=== PATIENT | female | born 1985 | race American Indian/Alaskan Native ===

== ENCOUNTER 2016-10-13 08:33 | Outpatient (CLI) | payer MEDICAID ==
--- NOTE | 2016-10-13 09:33 | Ultrasound Report ---
BILATERAL BREAST ULTRASOUND: 10/13/16 08:33:00 CLINICAL: with bilateral breast pain. COMPARISON: None. FINDINGS: Ultrasound of the right breast(including all four quadrants and the retroareolar area) was performed and demonstrated a benign cyst at 10 o'clock 10 cm from the nipple measuring 1.1 x 0.4 x 0.6 cm. Otherwise normal fibroglandular structures with no mass or shadowing. Ultrasound of the left breast (including all four quadrants and the retroareolar area) was performed and demonstrated normal fibroglandular and fatty structures. No mass, cyst or shadowing. IMPRESSION: A benign right breast cyst at 10 o'clock and negative left breast. BI-RADS 2 - - Benign RECOMMENDATION: Clinical followup and routine mammographic screening based on ACS guidelines.
== END 2016-10-13 08:34 | disposition home or self-care (01) ==
LOC: SPVWC 08:33
PROVIDERS: ATTEND Obstetrics & Gynecology
DX: N60.01 Solitary cyst of right breast (principal); N64.4 Mastodynia; N63 Unspecified lump in breast